=== PATIENT | male | born 1955 | race Caucasian/White ===

== ENCOUNTER 2017-02-06 11:57 | Day surgery (SDC) | payer OTHER ==
[2017-02-05 09:48] VITALS: BMI 33.4
[2017-02-06] MEDS ORDERED: fentaNYL CITRATE 250 MCG/5 ML VIAL ONE (14:42)
[2017-02-06] MEDS ORDERED: PROPOFOL 20 ML ONE (14:42)
[2017-02-06] MEDS ORDERED: MIDAZOLAM HCL 2 MG/2 ML SINGLE DOSE VIAL ONE (14:42)
[2017-02-06] MEDS ORDERED: ceFAZolin SODIUM 1 GM VIAL ONE (14:45)
[2017-02-06] MEDS ORDERED: DEXAMETHASONE SOD PHOSPHATE 4 MG/1 ML VIAL ONE (14:45)
[2017-02-06] MEDS ORDERED: ONDANSETRON 4 MG/2 ML VIAL ONE (14:45)
[2017-02-06] MEDS ORDERED: ROCURONIUM BROMIDE 50 MG/5 ML VIAL ONE (14:47)
[2017-02-06] MEDS ORDERED: DESFLURANE GAS 240 ML BOTTLE IH ONE (15:23)
[2017-02-06] MEDS ORDERED: BUPIVACAINE HCL 0.25% 125 MG/50 ML VIAL ONE (15:31)
[2017-02-06] MEDS ORDERED: HYDROmorphone HCL/PF 1 MG/ML VIAL (FOR PYXIS CHARGING ONLY) ONE ×2 (15:49→16:20)
[2017-02-06] MEDS ORDERED: BUPIVACAINE HCL/PF 0.25% (2.5MG/ML) 10 ML VIAL IJ ONE (16:22)
[2017-02-06 18:25] VITALS: TEMP 98.6
[2017-02-06 18:45] VITALS: PULSE 86
[2017-02-06 18:48] VITALS: BP 140/85
--- NOTE | 2017-02-08 09:28 | SPEC ---
DATE OF OPERATION: 02/06/2017 PREOPERATIVE DIAGNOSIS: Left small finger proximal phalanx open fracture, severely displaced. POSTOPERATIVE DIAGNOSIS: Left small finger proximal phalanx open fracture, severely displaced. OPERATIVE PROCEDURE: Open reduction and internal fixation of left small finger proximal phalanx fracture. SURGEON: Eliezer Jimenez MD GENERAL MACHINIST: MAY Yuan ANESTHESIA: General. COMPLICATIONS: None. ESTIMATED BLOOD LOSS: Minimal. INDICATIONS FOR PROCEDURE: The patient is a 62-year-old male with the above findings indicated for operative treatment. Risks, benefits and alternatives were discussed with the patient at length. Proper informed consent was obtained. DESCRIPTION OF PROCEDURE: After proper identification of the patient and correct operative site, the patient was brought to the operating room and placed supine on the operating room table. All prominences were well padded. General anesthesia was provided by the anesthesiologist. Intravenous antibiotics given. Timeout procedure was performed. The left upper extremity was prepped and draped in the usual sterile fashion. A well-padded tourniquet was placed with a sterile prep. Esmarch bandage used to exsanguinate the left upper extremity. Tourniquet was inflated to 250 mmHg. Closed-reduction was attempted to be performed; however, this was not possible. Therefore, the volar laceration the patient sustained was opened and slightly enlarged proximally and distally with a Vinicio-type incision. Neurovascular bundles appeared to be intact, although there had been some what appeared to be contusion-type injury to the ulnar neurovascular bundle. Flexor tendons were found to be intact; however, were trapped within the fracture site and were relieved of this. The fracture was then reduced and found to be highly comminuted and it was pinned through the skin dorsally with two crossing K-wires. This provided secure, stable, satisfactory fixation with normal and rotation of the finger. The pins were cut short and bent outside of the skin. The wound volarly was irrigated and repaired using 5-0 fast-absorbing plain gut sutures. Sterile dressings were applied. A splint was placed. The patient was reversed from anesthesia and brought to the recovery room in stable condition. Howie Junior, the physical therapy assistant, was integral throughout the procedure. The procedure could not have been performed without a skilled operative physical therapy assistant. Mariangel SKINNER/[id number]
== END 2017-02-06 18:25 | disposition home or self-care (01) ==
LOC: FASU 11:57
PROVIDERS: ATTEND Orthopaedic Surgery Hand Surgery
PROC: 0PSV04Z Reposition Left Finger Phalanx with Internal Fixation Device, Open Approach (ICD-10-PCS; principal; 2017-02-06 15:26)
DX: S62.617B Displaced fracture of proximal phalanx of left little finger, initial encounter for open fracture (principal); X58.XXXA Exposure to other specified factors, initial encounter; Y93.9 Activity, unspecified; Y92.9 Unspecified place or not applicable
CPT/HCPCS: 73130-TC-LT; 94760